=== PATIENT | male | born 2000 | race African-American/Black ===

== ENCOUNTER 2023-04-24 03:01 | Emergency (ER) | payer SELFPAY ==
[~2023-04-24] VITALS: Ht 188 cm; Wt 66.0 kg
[2023-04-24 03:14] VITALS: BP 153/95
== END 2023-04-24 05:38 | disposition left against medical advice (07) ==
LOC: ER 03:01
DX: Z53.21 Procedure and treatment not carried out due to patient leaving prior to being seen by health care provider (principal)
CPT/HCPCS: 73551; 99281